=== PATIENT | female | born 1985 | race Caucasian/White ===

== ENCOUNTER 2023-05-06 17:36 | Inpatient (IN) | payer OTHER ==
[~2023-05-06] VITALS: Ht 170.2 cm; Wt 117.9 kg
[2023-05-06 22:04] VITALS: BP 133/82; PULSE 94; RESP 20; TEMP 98; O2SAT 98
[2023-05-06 23:53] LABS: BASOPHILS # (AUTO) 0.1 K/uL (0.00-0.22); BASOPHILS % (AUTO) 0.5 % (0.0-2.0); EOSINOPHILS # (AUTO) 0.4 K/uL (0-0.4); EOSINOPHILS % (AUTO) 3.3 % (0.0-4.0); LYMPHOCYTES % (AUTO) 27.2 % (20.5-51.1); MEAN CORPUSCULAR HEMOGLOBIN 23 pg (27-31); MEAN CORPUSCULAR HGB CONC 32 g/dL (33-37); MONOCYTES # (AUTO) 0.6 K/uL (0.8-1.0); MONOCYTES % (AUTO) 5.1 % (1.7-9.3); NEUTROPHILS % (AUTO) 63.9 % (42.2-75.2); PLATELET COUNT (AUTO) 419 K/uL (140-450); RED BLOOD CELL COUNT(AUTO) 2.44 MIL/uL (4.20-5.40); RED CELL DISTRIBUTION WIDTH 17.4 % (11.6-13.7)
[2023-05-06 23:59] LABS: ANION GAP 9.8 (8-16); CARBON DIOXIDE 28.7 mmol/L (21-32); CREATININE 0.8 mg/dL (0.6-1.3); POTASSIUM 3.5 mmol/L (3.5-5.1)
[2023-05-07] VITALS (9 sets, daily range): BP systolic 111–126; BP diastolic 60–78; PULSE 72–97; RESP 18; TEMP 97–98; O2SAT 97–100
[2023-05-07 00:01] LABS: HEMOGLOBIN 5.6 g/dL (12.0-16.0)
[2023-05-07 00:02] LABS: HEMATOCRIT 17.8 % (36-48)
[2023-05-07] MEDS ORDERED: NACL 0.9% 1,000 ML IV SCH ×2 (00:05→00:35)
[2023-05-07] MEDS ORDERED: ZOLPIDEM 5 MG TAB PO PRN (00:35)
[2023-05-07] MEDS ORDERED: POTASSIUM CHLORIDE 10 MEQ TABER PO PRN (00:35)
[2023-05-07] MEDS ORDERED: ONDANSETRON 4 MG/2 ML VIAL IM/IVP PRN (00:35)
[2023-05-07] MEDS ORDERED: guaiFENesin DM 200/20 MG-10 ML 10 ML UDC PO PRN (00:35)
[2023-05-07 01:00] LABS: INR 0.93 (0.8-1.2); PARTIAL THROMBOPLASTIN TIME 21.9 secs (22-35.6); PROTHROMBIN TIME 9.8 secs (10.8-13.4)
[2023-05-07] MEDS ORDERED: MORPHINE SULFATE 4 MG/ML SYR IVP ONE (01:40)
[2023-05-07] MEDS ORDERED: ONDANSETRON 4 MG/2 ML VIAL IVP ONE (02:00)
[2023-05-07 02:55] LABS: APPEARANCE,URINE CLEAR (CLEAR); BILIRUBIN,URINE NEGATIVE (NEGATIVE); BLOOD, URINE NEGATIVE (NEGATIVE); COLOR,URINE YELLOW (YELLOW); LEUKOCYTE ESTERASE ,URINE NEGATIVE (NEGATIVE); NITRITE, URINE NEGATIVE (NEGATIVE); PROTEIN,URINE NEGATIVE (NEGATIVE); UGLUCOSE NEGATIVE (NEGATIVE); UROBILINOGEN,URINE 0.2 EU/dL (0.2 - 1)
[2023-05-07] MEDS ORDERED: DEXTROSE 50% 50 ML SYR IVP PRN ×2 (06:50→07:20)
[2023-05-07] MEDS ORDERED: INSULIN LISPRO SLIDING SCALE 100 UNITS/ML VIAL SUBQ PRN (07:20)
[2023-05-07] MEDS: BLOOD GLUCOSE MONITORING 1 DEV DEV FS SCH ×4 (07:21→20:06)
[2023-05-07] MEDS: DEXT 5% /NACL 0.9% 1,000 ML IV SCH ×2 (07:25→08:19)
[2023-05-07] MEDS ORDERED: BLOOD GLUCOSE MONITORING 1 DEV DEV FS SCH (07:30)
[2023-05-07] MEDS: INSULIN LISPRO SLIDING SCALE 100 UNITS/ML VIAL SUBQ PRN ×3 (07:45→20:20)
[2023-05-07] MEDS: PANTOPRAZOLE 40 MG INJ VIAL IVP SCH ×2 (08:17→20:07)
[2023-05-07] MEDS ORDERED: PANTOPRAZOLE 40 MG TABEC PO SCH (09:00)
[2023-05-07] MEDS ORDERED: SUPREP BOWEL PREP KIT 354 ML SOLN.RECON PO SCH (09:00)
[2023-05-07] MEDS: HYDROcodone/APAP 7.5/325 MG 1 TAB PO PRN (09:25)
[2023-05-07 09:29] LABS: BASOPHILS % (AUTO) 0.5 % (0.0-2.0); EOSINOPHILS # (AUTO) 0.3 K/uL (0-0.4); EOSINOPHILS % (AUTO) 4.1 % (0.0-4.0); LYMPHOCYTES # (AUTO) 1.9 K/uL (2.5-16.5); LYMPHOCYTES % (AUTO) 27.3 % (20.5-51.1); MEAN CORPUSCULAR HEMOGLOBIN 24 pg (27-31); MEAN CORPUSCULAR HGB CONC 32 g/dL (33-37); MEAN CORPUSCULAR VOLUME 74.8 fL (80-94); MONOCYTES # (AUTO) 0.3 K/uL (0.8-1.0); NEUTROPHILS # (AUTO) 4.3 K/uL (1.8-7.7); NEUTROPHILS % (AUTO) 63.1 % (42.2-75.2); PLATELET COUNT (AUTO) 310 K/uL (140-450); RED BLOOD CELL COUNT(AUTO) 2.41 MIL/uL (4.20-5.40); RED CELL DISTRIBUTION WIDTH 18.6 % (11.6-13.7); WHITE BLOOD COUNT (AUTO) 6.9 K/uL (4.8-10.8)
[2023-05-07 09:40] LABS: ALBUMIN 2.8 g/dL (3.4-5.0); ANION GAP 13.4 (8-16); CALCIUM 7.1 mg/dL (8.5-10.1); CARBON DIOXIDE 26.1 mmol/L (21-32); CREATININE 0.7 mg/dL (0.6-1.3); POTASSIUM 3.5 mmol/L (3.5-5.1); TOTAL BILIRUBIN 0.2 mg/dL (0.0-1.0); TOTAL PROTEIN, SERUM 5.7 g/dL (6.4-8.2)
[2023-05-07 10:13] LABS: HEMOGLOBIN 5.7 g/dL (12.0-16.0)
[2023-05-07 11:01] LABS: BENZODIAZEPINE, URINE POSITIVE ng/mL (NEG <=200); CANNABINOID, URINE POSITIVE ng/mL (NEG <=50)
[2023-05-07 11:02] LABS: AMPHETAMINE, URINE NEGATIVE ng/ml (NEG <=1000); BARBITURATE, URINE NEGATIVE ng/ml (NEG <=200); COCAINE, URINE NEGATIVE ng/mL (NEG <=300); OPIATE, URINE POSITIVE ng/mL (NEG <=2000); PHENCYCLIDINE SCREEN,URINE NEGATIVE ng/mL (NEG <=25)
[2023-05-07] MEDS: SUPREP BOWEL PREP KIT 354 ML SOLN.RECON PO SCH (16:30)
[2023-05-07] MEDS: ACETAMINOPHEN 325 MG TAB PO PRN (20:10)
[2023-05-07 21:23] LABS: HEMATOCRIT 23.5 % (36-48); HEMOGLOBIN 7.5 g/dL (12.0-16.0)
[2023-05-08] VITALS (7 sets, daily range): BP systolic 105–124; BP diastolic 57–75; PULSE 65–94; RESP 18–20; TEMP 97.1–98.6; O2SAT 98–100
[2023-05-08] MEDS: SUPREP BOWEL PREP KIT 354 ML SOLN.RECON PO SCH (04:50)
[2023-05-08] MEDS: ACETAMINOPHEN 325 MG TAB PO PRN (04:57)
[2023-05-08] MEDS: BLOOD GLUCOSE MONITORING 1 DEV DEV FS SCH ×4 (06:37→20:13)
[2023-05-08] MEDS: INSULIN LISPRO SLIDING SCALE 100 UNITS/ML VIAL SUBQ PRN ×3 (06:40→20:19)
[2023-05-08 07:01] LABS: BASOPHILS % (AUTO) 0.4 % (0.0-2.0); EOSINOPHILS # (AUTO) 0.4 K/uL (0-0.4); EOSINOPHILS % (AUTO) 5.5 % (0.0-4.0); HEMATOCRIT 25.3 % (36-48); MEAN CORPUSCULAR HEMOGLOBIN 25 pg (27-31); MEAN CORPUSCULAR HGB CONC 32 g/dL (33-37); MEAN CORPUSCULAR VOLUME 80.1 fL (80-94); MONOCYTES # (AUTO) 0.4 K/uL (0.8-1.0); MONOCYTES % (AUTO) 5.7 % (1.7-9.3); NEUTROPHILS # (AUTO) 4.2 K/uL (1.8-7.7); NEUTROPHILS % (AUTO) 60.4 % (42.2-75.2); PLATELET COUNT (AUTO) 320 K/uL (140-450); RED BLOOD CELL COUNT(AUTO) 3.16 MIL/uL (4.20-5.40); RED CELL DISTRIBUTION WIDTH 20.3 % (11.6-13.7)
[2023-05-08 07:26] LABS: CALCIUM 7.6 mg/dL (8.5-10.1); CARBON DIOXIDE 26.8 mmol/L (21-32); CREATININE 0.7 mg/dL (0.6-1.3); POTASSIUM 3.8 mmol/L (3.5-5.1); TOTAL BILIRUBIN 0.3 mg/dL (0.0-1.0)
[2023-05-08] MEDS: PANTOPRAZOLE 40 MG INJ VIAL IVP SCH ×2 (09:13→20:09)
[2023-05-08 10:06] LABS: FOLIC ACID 18.4 ng/mL (>3.0)
[2023-05-08] MEDS: DEXT 5% /NACL 0.9% 1,000 ML IV SCH (11:55)
[2023-05-08] MEDS ORDERED: MIDAZOLAM 5 MG/5 ML VIAL ONE (13:55)
[2023-05-08] MEDS ORDERED: fentaNYL citrate 0.05 MG/ML VIAL ONE (13:55)
[2023-05-08] MEDS ORDERED: fentaNYL citrate 0.05 MG/ML VIAL IVP ONE (15:40)
[2023-05-08] MEDS ORDERED: MIDAZOLAM 2 MG/2 ML VIAL IVP ONE (15:40)
[2023-05-08] MEDS: HYDROcodone/APAP 7.5/325 MG 1 TAB PO PRN ×2 (17:25→21:55)
[2023-05-09] VITALS: BP 104/74; PULSE 66; RESP 17; TEMP 97.3; O2SAT 98
[2023-05-09] MEDS: DEXT 5% /NACL 0.9% 1,000 ML IV SCH ×2 (02:21→16:37)
[2023-05-09 04:00] VITALS: BP 104/62; PULSE 70; PULSE 72; RESP 18; TEMP 97.9; O2SAT 98
[2023-05-09] MEDS: HYDROcodone/APAP 7.5/325 MG 1 TAB PO PRN (05:08)
[2023-05-09 06:28] LABS: BASOPHILS % (AUTO) 0.3 % (0.0-2.0); EOSINOPHILS # (AUTO) 0.3 K/uL (0-0.4); EOSINOPHILS % (AUTO) 5.1 % (0.0-4.0); HEMATOCRIT 23.6 % (36-48); HEMOGLOBIN 7.6 g/dL (12.0-16.0); LYMPHOCYTES # (AUTO) 1.9 K/uL (2.5-16.5); MEAN CORPUSCULAR HEMOGLOBIN 26 pg (27-31); MEAN CORPUSCULAR HGB CONC 32 g/dL (33-37); MEAN CORPUSCULAR VOLUME 79.1 fL (80-94); MONOCYTES # (AUTO) 0.4 K/uL (0.8-1.0); MONOCYTES % (AUTO) 5.3 % (1.7-9.3); NEUTROPHILS % (AUTO) 60.3 % (42.2-75.2); PLATELET COUNT (AUTO) 289 K/uL (140-450); RED BLOOD CELL COUNT(AUTO) 2.98 MIL/uL (4.20-5.40); RED CELL DISTRIBUTION WIDTH 20.2 % (11.6-13.7); WHITE BLOOD COUNT (AUTO) 6.7 K/uL (4.8-10.8)
[2023-05-09] MEDS: BLOOD GLUCOSE MONITORING 1 DEV DEV FS SCH ×4 (06:38→20:37)
[2023-05-09] MEDS: INSULIN LISPRO SLIDING SCALE 100 UNITS/ML VIAL SUBQ PRN ×3 (06:41→20:41)
[2023-05-09 07:15] LABS: ALBUMIN 2.9 g/dL (3.4-5.0); ANION GAP 10.5 (8-16); CALCIUM 7.9 mg/dL (8.5-10.1); CARBON DIOXIDE 27.3 mmol/L (21-32); CREATININE 0.7 mg/dL (0.6-1.3); POTASSIUM 3.8 mmol/L (3.5-5.1); TOTAL BILIRUBIN 0.4 mg/dL (0.0-1.0); TOTAL PROTEIN, SERUM 5.8 g/dL (6.4-8.2)
[2023-05-09 07:45] VITALS: PULSE 78; RESP 20; O2SAT 98
[2023-05-09 08:00] VITALS: BP 118/72; PULSE 62; PULSE 74; RESP 17; TEMP 97.8; O2SAT 98
[2023-05-09] MEDS: PANTOPRAZOLE 40 MG INJ VIAL IVP SCH ×2 (09:14→20:30)
[2023-05-09] MEDS ORDERED: SEVOFLURANE 250 ML BTL INH ONE (10:05)
[2023-05-09] MEDS ORDERED: BUPIVACAINE-MPF 0.25% 30 ML VIAL INJ ONE (10:07)
[2023-05-09] MEDS ORDERED: LIDOCAINE/EPI MPF 1%1:200000 30 ML VIAL INJ ONE (10:07)
[2023-05-09] MEDS ORDERED: PROPOFOL 200 MG/20 ML VIAL IV ONE (10:15)
[2023-05-09] MEDS ORDERED: MIDAZOLAM 2 MG/2 ML VIAL ONE (10:16)
[2023-05-09] MEDS ORDERED: fentaNYL citrate 0.05 MG/ML VIAL ONE (10:18)
[2023-05-09] MEDS ORDERED: SUCCINYLCHOLINE CHLORIDE 200 MG/10 ML VIAL IVP ONE (10:19)
[2023-05-09] MEDS ORDERED: METOCLOPRAMIDE 10 MG/2 ML INJ VIAL ONE (11:16)
[2023-05-09] MEDS ORDERED: DEXAMETHASONE 4 MG/ML VIAL ONE (11:16)
[2023-05-09] MEDS ORDERED: ONDANSETRON 4 MG/2 ML VIAL ONE (11:16)
[2023-05-09] MEDS: HYDROmorphone 1 MG/ML AMP IVP PRN ×3 (11:43→21:03)
[2023-05-09] MEDS ORDERED: HYDROmorphone PFS 2 MG/ML SYR ONE (11:45)
[2023-05-09] MEDS: HYDROcodone/APAP 5/325 MG 1 TAB TAB PO PRN ×2 (14:30→23:12)
[2023-05-09 16:00] VITALS: BP 120/88; PULSE 81; RESP 19; TEMP 97; O2SAT 92
[2023-05-09] MEDS: ACETAMINOPHEN 325 MG TAB PO PRN (18:00)
[2023-05-09 20:00] VITALS: PULSE 84; RESP 18; O2SAT 98
[2023-05-09] MEDS: DOCUSATE SODIUM 100 MG GELCAP PO PRN (20:30)
[2023-05-10] VITALS: BP 118/63; PULSE 83; RESP 18; TEMP 98.5; O2SAT 95
[2023-05-10] MEDS: ACETAMINOPHEN 325 MG TAB PO PRN (01:18)
[2023-05-10] MEDS: HYDROmorphone 1 MG/ML AMP IVP PRN ×2 (03:26→09:58)
[2023-05-10] MEDS: HYDROcodone/APAP 5/325 MG 1 TAB TAB PO PRN ×2 (05:34→08:28)
[2023-05-10 06:27] LABS: BASOPHILS % (AUTO) 0.2 % (0.0-2.0); EOSINOPHILS % (AUTO) 0.3 % (0.0-4.0); HEMATOCRIT 25.3 % (36-48); HEMOGLOBIN 8.1 g/dL (12.0-16.0); LYMPHOCYTES # (AUTO) 1.9 K/uL (2.5-16.5); LYMPHOCYTES % (AUTO) 13.7 % (20.5-51.1); MEAN CORPUSCULAR HEMOGLOBIN 25 pg (27-31); MEAN CORPUSCULAR HGB CONC 32 g/dL (33-37); MEAN CORPUSCULAR VOLUME 78.5 fL (80-94); MONOCYTES # (AUTO) 0.8 K/uL (0.8-1.0); MONOCYTES % (AUTO) 5.6 % (1.7-9.3); NEUTROPHILS # (AUTO) 11.1 K/uL (1.8-7.7); NEUTROPHILS % (AUTO) 80.2 % (42.2-75.2); PLATELET COUNT (AUTO) 329 K/uL (140-450); RED BLOOD CELL COUNT(AUTO) 3.23 MIL/uL (4.20-5.40); RED CELL DISTRIBUTION WIDTH 20.3 % (11.6-13.7); WHITE BLOOD COUNT (AUTO) 13.8 K/uL (4.8-10.8)
[2023-05-10] MEDS: DEXT 5% /NACL 0.9% 1,000 ML IV SCH (06:55)
[2023-05-10] MEDS: BLOOD GLUCOSE MONITORING 1 DEV DEV FS SCH (06:57)
[2023-05-10 07:00] LABS: ALBUMIN 3.2 g/dL (3.4-5.0); ANION GAP 12.9 (8-16); CALCIUM 8.2 mg/dL (8.5-10.1); CARBON DIOXIDE 28.8 mmol/L (21-32); CREATININE 0.7 mg/dL (0.6-1.3); POTASSIUM 3.7 mmol/L (3.5-5.1); TOTAL BILIRUBIN 0.3 mg/dL (0.0-1.0); TOTAL PROTEIN, SERUM 6.6 g/dL (6.4-8.2)
[2023-05-10 08:00] VITALS: BP 111/70; PULSE 70; RESP 18; TEMP 98.3; O2SAT 97
[2023-05-10] MEDS: DOCUSATE SODIUM 100 MG GELCAP PO PRN (08:31)
[2023-05-10] MEDS: PANTOPRAZOLE 40 MG INJ VIAL IVP SCH (09:00)
[2023-05-10] MEDS ORDERED: HYDR-5080 PO (09:13)
[2023-05-10 10:35] VITALS: BP 111/70; PULSE 70; RESP 18; TEMP 98.3
== END 2023-05-10 13:29 | disposition home or self-care (01) | DRG 394 ==
LOC: MED 17:36 → MTU 05-07 00:36
PROVIDERS: ADMIT Student in an Organized Health Care Education/Training Program; ATTEND Student in an Organized Health Care Education/Training Program
PROC: 0DJD8ZZ Inspection of Lower Intestinal Tract, Via Natural or Artificial Opening Endoscopic (ICD-10-PCS; principal; 2023-05-08 13:00)
DX: K64.8 Other hemorrhoids (principal); E44.0 Moderate protein-calorie malnutrition; Z68.41 Body mass index [BMI] 40.0-44.9, adult; E11.9 Type 2 diabetes mellitus without complications; K57.90 Diverticulosis of intestine, part unspecified, without perforation or abscess without bleeding; K64.0 First degree hemorrhoids; D50.0 Iron deficiency anemia secondary to blood loss (chronic); K64.4 Residual hemorrhoidal skin tags
CPT/HCPCS: 31500; 36415; 71045; 80048; 80053; 80305; 81003; 81025; 82272; 82607; 82728; 82746; 82948; 83036; 83540; 85018; 85025; 85610; 85730; 86886; 86900; 86901; 86920; 87040; 87081; 87086; 93005; 96374; 96375; 99285; C9113; J0330; J1100; J1170; J1815; J2001; J2250; J2270; J2405; J2704; J2765; J3010; J3490; P9016; Q0092